=== PATIENT | male | born 1965 | race Caucasian/White ===

== ENCOUNTER → 2019-09-18 10:23 | Outpatient (CLI) | payer OTHER, SELFPAY ==
[2019-09-18 11:22] LABS: INR 1.06 (0.9-1.1); Prothrombin Time 10.9 seconds (9.4-11.8)
== END ==
PROVIDERS: Visit Provider Orthopaedic Surgery
DX: Z79.01 Long term (current) use of anticoagulants (principal)
CPT/HCPCS: 36415; 85610

== ENCOUNTER → 2019-09-24 12:15 | Outpatient (CLI) | payer OTHER, SELFPAY ==
[2019-09-24 12:50] LABS: INR 1.05 (0.9-1.1); Prothrombin Time 10.8 seconds (9.4-11.8)
== END ==
PROVIDERS: Visit Provider Orthopaedic Surgery
DX: Z51.81 Encounter for therapeutic drug level monitoring (principal); Z79.01 Long term (current) use of anticoagulants
CPT/HCPCS: 36415; 85610

== ENCOUNTER → 2019-09-27 08:56 | Outpatient (CLI) | payer OTHER, SELFPAY ==
[2019-09-27 10:36] LABS: Prothrombin Time 12.3 seconds (9.4-11.8)
== END ==
PROVIDERS: Visit Provider Orthopaedic Surgery
DX: Z51.81 Encounter for therapeutic drug level monitoring (principal); Z79.01 Long term (current) use of anticoagulants
CPT/HCPCS: 36415; 85610

== ENCOUNTER → 2019-10-01 10:33 | Outpatient (CLI) | payer OTHER, SELFPAY ==
[2019-10-01 11:35] LABS: Prothrombin Time 16.9 seconds (9.4-11.8)
== END ==
PROVIDERS: Visit Provider Orthopaedic Surgery
DX: Z51.81 Encounter for therapeutic drug level monitoring (principal); Z79.01 Long term (current) use of anticoagulants
CPT/HCPCS: 36415; 85610

== ENCOUNTER → 2020-08-24 11:57 | Outpatient (CLI) | payer OTHER, SELFPAY ==
[2020-08-24 13:20] LABS: Coronavirus 19 IgG Antibody Positive (Negative); Coronavirus 19 IgM Antibody Negative (Negative)
== END ==
PROVIDERS: Visit Provider Internal Medicine Gastroenterology
DX: Z01.812 Encounter for preprocedural laboratory examination (principal); Z20.822 Contact with and (suspected) exposure to COVID-19; Z12.11 Encounter for screening for malignant neoplasm of colon
CPT/HCPCS: 36415; 86328

== ENCOUNTER 2020-08-25 08:19 | Day surgery (SDC) | payer OTHER, SELFPAY ==
[2020-08-22 12:57] VITALS: BMI 36.9
[2020-08-25 08:51] VITALS: BP 142/81; PULSE 75; RESP 18; TEMP 36.2; O2SAT 99
[2020-08-25 09:04] LABS: POC Glucose,Bedside 156 (70-110)
[2020-08-25 09:35] VITALS: O2SAT 97
--- NOTE | 2020-08-25 09:40 | P.PN_ITS ---
[facility] Anesthesia Checklist - Structural Data Admitted From: Home Planned Operative Procedure/s: colonoscopy Consent for Planned Operative Procedure(s) Verified: Yes - Airway Assessment C-Spine Mobility Assessed: Yes TMJ Mobility Assessed: Yes Dentition: Good Dentition - Neurological Assessment Level of Consciousness: Awake, Alert, Appropriate - Anesthesia Plan Anesthesia Risk discussed: Yes Anesthesia Plan: Verified ASA Class: III Anesthesia Type: MAC [facility] History I have reviewed the patient's past medical history: Yes Medical History: Reports:: Diabetes Mellitus Type 2, Hypertension Denies:: Cancer, Diabetes Mellitus Type 1, Internal Pacemaker, MRSA, Seizures *Have you ever received a pneumonia vaccine?: Yes *Have you received a flu vaccine this season?: Yes Anesthesia experience/problems:: none Laterality Cases: Right: Total Hip Replacement Other Surgeries: Yes: Cholecystectomy, Colonoscopy. No: Pacemaker Amputation: No Fractures: Yes - *Social History Last grade of school completed: High school graduate Smoking Status: Current every day smoker Tobacco Type: smokeless tobacco # Packs/Day (cigarettes): 1 Alcohol Intake: current Alcohol Intake Frequency:: holidays/special occasions only Substance Use Type: denies use *Occupational Status:: employed Housing: house Household Members: spouse *Travel in the last 8 weeks: None Family Hx:: Cancer, Diabetes, Hypertension
--- NOTE | 2020-08-25 09:45 | P.PCN_ITS ---
[facility] Procedure Note Procedure Note:: Colonoscopy Procedure Report: Colonoscopy with cold snare polypectomy Endoscopist: Michael Ashley II, MD Referring physician: Leslie Drew MD Date of Procedure: August 25, 2020 Equipment: Olympus 190 variable stiffness pediatric colonoscope Sedation: MAC sedation Indication: Mr. Garcia is a 55-year-old gentleman who is here for initial screening colonoscopy. He reports no abdominal pain, weight loss, change in his bowel habits or rectal bleeding. He reports no family history of colon cancer. Procedure: Prior to the procedure, a history and physical exam was performed, and patient's medications and allergies were reviewed. The risks, benefits and alternatives of the sedation and procedure were discussed with the patient. All questions were answered and informed consent was obtained. The patient was brought to the procedure room. Patient identification and proposed procedure were verified by the physician and the nurse. The patient was placed in a left lateral decubitus position and the scope was passed under direct vision. Throughout the procedure, the patient's blood pressure, pulse, and oxygen saturations were monitored continuously. The colonoscopy was accomplished without difficulty. The patient tolerated the procedure well. Findings: On digital rectal examination there was normal rectal tone. There were no external hemorrhoids. The prostate was 2+, smooth, soft, symmetric without nodules. The colonoscope was introduced through the anal canal to the rectum and advanced to the cecum. The ileocecal valve and appendiceal orifice were identified. The scope was advanced a short distance into the ileum which appeared grossly normal. The scope was then withdrawn into the colon. There were a total of 7 colon polyps (cecum/ascending x5 (3, 3, 5, 8 and 10 mm) and rectum x2 (3 and 4 mm)) which were all removed via cold snare polypectomy. The remaining cecum, ascending, transverse, descending, sigmoid and rectum were grossly normal. There were no mucosal abnormalities identified. Upon retroflexion within the rectum there were grade 2 internal hemorrhoids.The pr eparation was excellent throughout with [place] Preparation Score of 9. The cecal time was 15 minutes. Impression: 1. Colonic polyps x7 2. Grade 2 internal hemorrhoids Plan: I will follow up the polyp pathology and recommend repeat colonoscopy again in 3 years based upon the polyp number, size and polyp histology. I would encourage bulk fiber supplementation on a long-term daily maintenance basis.
[2020-08-25 10:05] VITALS: BP 144/82; PULSE 92; RESP 18; TEMP 36.2; O2SAT 91
[2020-08-25 10:15] VITALS: BP 144/84; PULSE 80; RESP 18; O2SAT 92
[2020-08-25 10:30] VITALS: BP 135/86; PULSE 69; RESP 18; O2SAT 92
[2020-08-25 10:50] VITALS: BP 141/84; PULSE 67; RESP 18; O2SAT 93
== END 2020-08-25 10:50 | disposition home or self-care (01) ==
LOC: OUTP 08:21
PROVIDERS: PCP Family Medicine; Visit Provider Internal Medicine Gastroenterology
PROC: 0DJD8ZZ Inspection of Lower Intestinal Tract, Via Natural or Artificial Opening Endoscopic (ICD-10-PCS; CPT 45378; principal; 2020-08-25 09:30)
DX: Z12.11 Encounter for screening for malignant neoplasm of colon (principal); K63.5 Polyp of colon; K64.1 Second degree hemorrhoids; E11.9 Type 2 diabetes mellitus without complications; I10 Essential (primary) hypertension; Z72.0 Tobacco use; Z80.9 Family history of malignant neoplasm, unspecified; Z83.3 Family history of diabetes mellitus; Z82.49 Family history of ischemic heart disease and other diseases of the circulatory system
CPT/HCPCS: 45385; 82962

== ENCOUNTER 2024-05-06 10:31 | Day surgery (SDC) | payer BC, SELFPAY ==
[2024-05-04 13:35] VITALS: BMI 33.0
[2024-05-06 10:56] VITALS: BP 149/87; PULSE 75; RESP 18; TEMP 36.1; O2SAT 95
[2024-05-06] MEDS: LACTATED RINGERS 1000ML 1,000 ML 25 ML IV (11:11)
--- NOTE | 2024-05-06 11:40 | EXP.ANES.CKL ---
[facility] Disclaimer: The information contained in this section may have been updated after the patient was seen, as this information can be updated by other users. Medical History History of gastroesophageal reflux (GERD) Atrial fibrillation No significant past medical history Diabetes mellitus, type 2 Hypertension Surgical History History of surgery on arm History of appendectomy History of right hip replacement History of cholecystectomy Family History Other Cancer Social History Smoking Status: Never smoker second hand exposure: No alcohol intake: never substance use type: denies use current occupational status: employed Travel in the last 8 weeks: None household members: spouse housing: house current occupation: quality technician fib[employer] current occupational exposures/hazards: No caffeine: Yes Have you lived/traveled outside [place] in past 30 days?: No Contact w/someone who lives/traveled outside US past 30 days?: No Exposure to someone with infectious disease in past 14 days?: No Do you have a fever (greater than 100.4 F or 38 C)?: No Have you tested positive for COVID-19: No Exposed to someone with COVID-19 in past 14 days?: No Do you have a sore throat?: No Do you have a cough?: No Do you have any weakness?: No Are you experiencing any nausea/vomitting?: No Do you have any diarrhea?: No Are you experiencing any unusual bleeding?: No Do you have any muscle aches/pain?: No Do you have any abdominal pain?: No Are you experiencing loss of taste or smell?: No [facility] Anesthesia Checklist Patient Identification Patient Identification: Arm Band and Verbal (Name & ) Structural Data Admitted From: Home Planned Operative Procedure/s: Colonoscopy Consent for Planned Operative Procedure(s) Verified: Yes Verified Documents: Surgical Consent, History and Physical and Cardiac Clearance NPO Status Verified Time NPO: 00:00 Additional verifications Anesthesia Reactions: No Airway Assessment Mallampati Score:: Class II C-Spine Mobility Assessed: Yes TMJ Mobility Assessed: Yes Dentition: Good Dentition Neurological Assessment Level of Consciousness: Awake Hx Seizures: No Numbness or tingling in extremities: No Anesthesia Plan Anesthesia Risk discussed: Yes Anesthesia Plan: Verified ASA Class: III Anesthesia Type: MAC
[2024-05-06 11:45] VITALS: O2SAT 100
--- NOTE | 2024-05-06 11:49 | EXP.HP ---
History of Present Illness *Admission Date: 05/06/24 *Reason for visit:: Personal history of adenomatous colon polyps *History of present illness: Mr. Garcia is a 59-year-old gentleman who is here for surveillance colonoscopy secondary to a personal history of adenomatous colon polyps. His colonoscopy in August 2020 revealed 7 polyps ranging in size from 3 to 10 mm (serrated adenomas x 5/hyperplastic polyps x 2) which were removed. The examination is deemed medically necessary for surveillance colonoscopy. The patient has been seen, interviewed and examined prior to the procedure by both myself and the anesthesia provider. [facility] Disclaimer: The information contained in this section may have been updated after the patient was seen, as this information can be updated by other users. Medical History History of gastroesophageal reflux (GERD) Atrial fibrillation No significant past medical history Diabetes mellitus, type 2 Hypertension Surgical History History of surgery on arm History of appendectomy History of right hip replacement History of cholecystectomy Family History Other Cancer Social History Smoking Status: Never smoker second hand exposure: No alcohol intake: never substance use type: denies use current occupational status: employed Travel in the last 8 weeks: None household members: spouse housing: house current occupation: quality audit representative current occupational exposures/hazards: No caffeine: Yes Have you lived/traveled outside US in past 30 days?: No Contact w/someone who lives/traveled outside US past 30 days?: No Exposure to someone with infectious disease in past 14 days?: No Do you have a fever (greater than 100.4 F or 38 C)?: No Have you tested positive for COVID-19: No Exposed to someone with COVID-19 in past 14 days?: No Do you have a sore throat?: No Do you have a cough?: No Do you have any weakness?: No Are you experiencing any nausea/vomitting?: No Do you have any diarrhea?: No Are you experiencing any unusual bleeding?: No Do you have any muscle aches/pain?: No Do you have any abdominal pain?: No Are you experiencing loss of taste or smell?: No Other Medical History Have you received the Flu Vaccine for this season: Yes Have you received the Pneumonia Vaccine: Yes Review of Systems Review of Systems Review of systems (narrative): Negative *Cardiovascular Comments: Negative *Gastrointestinal Comments: Negative *Genitourinary Comments: Negative *Musculoskeletal Comments: Negative *Neurologic Comments: Negative Meds Home Medications and Allergies Home Medications ?Medication ?Instructions ?Recorded ?Confirmed ?Type lisinopril 5 mg tablet 5 mg PO DAILY bp 02/23/19 05/06/24 History meloxicam 15 mg tablet 15 mg PO DAILY Pain 02/23/19 05/06/24 History metformin 500 mg tablet,extended 500 mg PO QPM Diabetes 02/23/19 05/06/24 History release 24 hr omeprazole 20 mg capsule,delayed 20 mg PO DAILY GERD 02/23/19 05/06/24 History release sodium,potassium,mag sulfates 17.5 See Rx Instructions PO .COMPLEX 04/28/24 Rx gram-3.13 gram-1.6 gram oral soln #354 mL (Suprep Bowel Prep Kit) apixaban 2.5 mg tablet (Eliquis) 2.5 mg PO DAILY 05/04/24 05/06/24 History New Prescriptions to Start Prescriptions: Allergies Allergy/AdvReac Type Severity Reaction Status Date / Time No Known Allergies Allergy Verified 05/06/24 10:54 Exam Data for Last 24 hours Vital signs and Labs for Last 24 Hours: Temp Pulse Resp BP Pulse Ox O2 Del Method O2 Flow Rate 97.0 F L 75 18 149/87 H 95 Nasal Cannula 5 05/06/24 10:56 05/06/24 10:56 05/06/24 10:56 05/06/24 10:56 05/06/24 10:56 05/06/24 11:45 05/06/24 11:45 I & O for Last 24 hours: Intake & Output 05/03/24 05/04/24 05/05/24 05/06/24 23:59 23:59 23:59 23:59 Weight 230 lb *Routine HEENT Exam Head: Present normocephalic Eye: Present EOMI and PERRL ENT: Present mucous membranes moist *Routine Neck Exam Neck: Present supple *Routine Respiratory Exam Respiratory: Present CTA bilaterally *Routine Cardiovascular Exam Cardiovascular: Present RRR *Routine Abdominal Exam Abdominal: Present soft and normoactive bowel sounds; Absent tenderness *Routine Rectal Exam Rectal:: deferred *Routine Genitalia Exam Genitalia:: deferred *Routine Extremities Exam Extremities: Absent cyanosis, clubbing or edema *Routine Skin Exam Skin: Present warm; Absent rash *Routine Neurological Exam Neurological: Present alert and oriented X3 Assessment and Plan *Assessment and plan (1) Personal history of adenomatous and serrated colon polyps: Status: Acute Category: Medical Code(s): Z86.0101 - Personal history of adenomatous and serrated colon polyps Plan A/P: 1. Personal history of adenomatous colon polyps is the preprocedural diagnosis. The patient will be anesthetized/sedated using MAC sedation. The patient has been seen and examined. Cardiac and lung assessment prior to the examination is stable. Proceed with planned surveillance colonoscopy
--- NOTE | 2024-05-06 11:53 | P.PCN_ITS ---
[facility] Procedure Note Date: 05/06/24 Time: 12:09 Procedure Note:: Colonoscopy Procedure Report: Colonoscopy with cold snare polypectomy Endoscopist: Michael Ashley II, MD Referring physician: Leslie Drew MD [address] [place] [address], [address], [place] [address] Date of Procedure: May 06, 2024 Equipment: Olympus 190 variable stiffness pediatric colonoscope Sedation: MAC sedation Indication: Mr. Garcia is a 59-year-old gentleman who is here for follow-up surveillance colonoscopy secondary to a personal history of adenomatous colon polyps. He did have initial screening colonoscopy with [facility] in August 2020 and had 7 polyps (serrated adenomas x 5 (ranging in size from 3 to 10 mm) and hyperplastic polyps x 2) which were removed. He reports no abdominal pain, weight loss, change in his bowel habits or rectal bleeding. He reports no family history of colon cancer. Procedure: Prior to the procedure, a history and physical exam was performed, and patient's medications and allergies were reviewed. The risks, benefits and alternatives of the sedation and procedure were discussed with the patient. All questions were answered and informed consent was obtained. The patient was brought to the procedure room. Patient identification and proposed procedure were verified by the physician and the nurse. The patient was placed in a left lateral decubitus position and the scope was passed under direct vision. Throughout the procedure, the patient's blood pressure, pulse, and oxygen saturations were monitored continuously. The colonoscopy was accomplished without difficulty. The patient tolerated the procedure well. Findings: On digital rectal examination there was normal rectal tone. There were no external hemorrhoids. The colonoscope was introduced through the anal canal to the rectum and advanced to the cecum. The ileocecal valve and appendiceal orifice were identified. The scope was advanced a short distance into the ileum which appeared grossly normal. The scope was then withdrawn into the colon. The cecum, ascending and transverse colon and mucosa were grossly normal. There was a 9 mm polyp in the descending colon removed via cold snare polypectomy. There was a moderate amount of liquid brown stool and residue especially in the cecum and descending/sigmoid that impaired visualization. There were mildly scattered diverticuli within the distal descending and sigmoid colon (LEFT colon). The rectum itself was normal. Upon retroflexion within the rectum there were grade 1-2 internal hemorrhoids. The preparation was fair throughout bit poor and specific regions of colon with [place] Preparation Score of 6 out of 9. The cecal time was 14 minutes. Impression: 1. 9 mm descending colon polyp 2. Mild left-sided diverticulosis 3. Grade 1-2 internal hemorrhoids Plan: I will follow-up the polyp histology and recommend repeat surveillance colonoscopy again in 5 years. I will discuss the findings with the patient and family. I would encourage psyllium bulking fiber supplementation on a maintenance basis.
[2024-05-06 12:15] VITALS: BP 131/75; PULSE 79; RESP 16; O2SAT 96
[2024-05-06 12:25] VITALS: BP 136/82; PULSE 71; RESP 16; O2SAT 98
[2024-05-06 12:35] VITALS: BP 129/74; PULSE 68; RESP 16; O2SAT 98
[2024-05-06 12:45] VITALS: BP 115/77; PULSE 62; RESP 16; O2SAT 98
[2024-05-06 16:44] LABS: POC Glucose,Bedside 120 (70-110)
== END 2024-05-06 12:53 | disposition home or self-care (01) ==
PROVIDERS: PCP Family Medicine; Visit Provider Internal Medicine Gastroenterology
PROC: (CPT 45385; principal; 2024-05-06 12:00)
DX: K63.5 Polyp of colon (principal); K57.30 Diverticulosis of large intestine without perforation or abscess without bleeding; K64.8 Other hemorrhoids; Z86.0101 Personal history of adenomatous and serrated colon polyps
CPT/HCPCS: 45385; 82962; J7120